=== PATIENT | male | born 1945 | race Caucasian/White ===

== ENCOUNTER 2017-01-28 10:50 | Outpatient (RCR) | payer SELFPAY ==
[~2017-01-28 10:50] MED LIST: AMIO20TA PO; ASPI1TAB6 PO; BAYE325T12 PO; CARV6.25 PO; CO Q200C PO; LASI20TA PO; LISI40TAB PO; MAGO400T PO; METF500T PO; PROT1TAB2 PO; SIMV40TA2 PO; VITA100037 PO
== END 2017-02-26 ==
LOC: M CR 10:50
PROVIDERS: ATTEND Internal Medicine Cardiovascular Disease
DX: Z51.89 Encounter for other specified aftercare (principal); I25.5 Ischemic cardiomyopathy

== ENCOUNTER → 2017-03-22 | Outpatient (CLI) | payer MEDICARE, BC, OTHER ==
--- NOTE | 2017-03-22 08:08 | PFTRPT ---
Site: [facility], [address] [place], [address] ID: [id number] Name: ELLYN LEY Doctor: MD Woodson Collins Tech: Sunil HERNÁNDEZ RRT Age: 72 Sex: Male Race: Height: 69.00 Inches Weight: 174.00 Lbs BSA: 1.95 Diagnosis: AMIODARONE USE test meet the ATS standards for acceptability and repeatability. Pre-Bronch Post-Bronch Pred Actual %Pred Actual %Chng SPIROMETRY FVC (L) 4.22 3.16 74 FEV1 (L) 3.09 2.60 84 FEV1/FVC (%) 73 82 112 FEF 25% (L/sec) 6.79 6.05 89 FEF 50% (L/sec) 3.95 3.79 95 FEF 75% (L/sec) 1.10 1.01 91 FEF 25-75% (L/sec) 2.33 2.81 120 FEF Max (L/sec) 8.03 6.21 77 FIVC (L) 3.12 FIF 50% (L/sec) 4.43 3.03 68 FIF Max (L/sec) 3.59 MVV (L/min) 123 65 52 LUNG VOLUMES SVC (L) 4.41 3.27 74 IC (L) 3.21 2.25 70 ERV (L) 1.20 1.02 84 TGV (L) 3.62 2.39 66 RV (Pleth) (L) 2.42 1.38 56 TLC (Pleth) (L) 6.83 4.64 67 RV/TLC (Pleth) (%) 36 30 82 DIFFUSION DLCOunc (ml/min/mmHg) 25.48 18.20 71 DL/VA (ml/min/mmHg/L) 3.73 3.76 100 VA (L) 6.83 4.84 70 AIRWAYS RESISTANCE Raw (cmH2O/L/s) 1.45 1.11 76 Gaw (L/s/cmH2O) 1.03 0.91 87 sRaw (cmH2O*s) 4.76 2.82 59 sGaw (1/cmH2O*s) 0.20 0.36 178
== END ==
LOC: M CARPUL 07:30
PROVIDERS: ATTEND Internal Medicine
DX: Z79.899 Other long term (current) drug therapy (principal)

== ENCOUNTER → 2017-07-08 | Outpatient (REF) | payer MEDICARE, OTHER ==
[~2017-07-08] MED LIST changes: -CO Q200C PO; +CO Q200C10 PO; -METF500T PO; +METF500T13 PO; -VITA100037 PO; +VITA100067 PO
== END ==
LOC: M LAB REF 13:22
PROVIDERS: ATTEND Internal Medicine
DX: R00.2 Palpitations (principal); E03.9 Hypothyroidism, unspecified

== ENCOUNTER 2017-09-13 13:46 | Outpatient (RCR) | payer SELFPAY | END 2017-09-28 | LOC: M CR 13:46 | PROVIDERS: ATTEND Internal Medicine Cardiovascular Disease | DX: Z51.89 Encounter for other specified aftercare (principal); I25.5 Ischemic cardiomyopathy ==

== ENCOUNTER 2017-12-01 14:55 | Outpatient (RCR) | payer SELFPAY | END 2017-12-29 | LOC: M CR 14:55 | DX: Z51.89 Encounter for other specified aftercare (principal); I25.5 Ischemic cardiomyopathy ==

== ENCOUNTER → 2018-02-04 | Outpatient (REF) | payer MEDICARE, OTHER ==
[2018-02-04 14:52] LABS: CONTROL LINE HPYORI INT CTR LINE PRESENT; H PYLORI QUALITATIVE IgG NEGATIVE (NEGATIVE)
[2018-02-08 00:06] LABS: ENDOMYSIAL ABY IgA Negative (Negative)
[2018-02-08 00:06] LABS: TISSUE TRANSGLUTAMINASE IgA <2 U/mL (0-3)
== END ==
LOC: M LAB REF 13:38
DX: R10.13 Epigastric pain (principal)
CPT/HCPCS: 86255

== ENCOUNTER → 2018-02-09 | Outpatient (REF) | payer MEDICARE, OTHER ==
[2018-02-09 12:49] LABS: AMYLASE 63 U/L (25-115)
[2018-02-09 12:49] LABS: LIPASE 146 U/L (73-393)
== END ==
LOC: M LAB REF 12:04
DX: R10.13 Epigastric pain (principal)
CPT/HCPCS: 82150

== ENCOUNTER 2018-03-09 14:55 | Outpatient (RCR) | payer SELFPAY | END 2018-03-28 | LOC: M CR 14:55 | DX: I25.5 Ischemic cardiomyopathy (principal) ==

== ENCOUNTER → 2018-06-27 | Outpatient (CLI) | payer MEDICARE, BC, OTHER | LOC: M CARPUL 08:46 | DX: Z51.81 Encounter for therapeutic drug level monitoring (principal); Z79.899 Other long term (current) drug therapy | CPT/HCPCS: 94010 ==

== ENCOUNTER → 2018-07-12 | Outpatient (REF) | payer MEDICARE, OTHER ==
[2018-07-13 11:11] LABS: LIPASE 197 U/L (73-393)
[2018-07-13 11:11] LABS: AMYLASE 77 U/L (25-115)
== END ==
LOC: M LAB REF 07-13 10:51
DX: R10.13 Epigastric pain (principal)
CPT/HCPCS: 82150

== ENCOUNTER → 2019-04-23 | Outpatient (REF) | payer MEDICARE, OTHER ==
[~2019-04-23] MED LIST changes: +AMIO200T10 PO; -AMIO20TA PO; -LASI20TA PO; +LASI20TA3 PO; +LISI40TA52 PO; -LISI40TAB PO
== END ==
LOC: M WUC 10:43
PROVIDERS: ATTEND Physician Assistant
DX: J00 Acute nasopharyngitis [common cold] (principal)

== ENCOUNTER → 2019-12-07 | Outpatient (REF) | payer MEDICARE, OTHER ==
[~2019-12-07] MED LIST changes: -SIMV40TA2 PO; +SIMV40TA20 PO
[2019-12-11 18:18] LABS: FOLATE 7.3 NG/ML
== END ==
LOC: M LAB REF 17:09
PROVIDERS: ATTEND Internal Medicine
DX: D69.6 Thrombocytopenia, unspecified (principal)

== ENCOUNTER → 2020-11-05 | Outpatient (CLI) | payer SELFPAY | LOC: M LABSMTC 11:11 | PROVIDERS: ATTEND Pediatrics | DX: Z11.59 Encounter for screening for other viral diseases (principal) ==

== ENCOUNTER → 2022-01-23 | Outpatient (CLI) | payer MEDICARE, BC, OTHER | LOC: M RAD 12:05 | PROVIDERS: ATTEND Internal Medicine | DX: M79.605 Pain in left leg (principal) ==

== ENCOUNTER → 2022-06-10 | Outpatient (REF) | payer MEDICARE, BC, OTHER | LOC: M SFHCDERM 14:00 | PROVIDERS: ATTEND Physician Assistant | DX: C44.212 Basal cell carcinoma of skin of right ear and external auricular canal (principal) ==

== ENCOUNTER → 2024-10-04 | Outpatient (CLI) | payer MEDICARE, BC, OTHER | LOC: M WUC 09:54 | PROVIDERS: ATTEND Internal Medicine | DX: M54.50 Low back pain, unspecified (principal); M79.604 Pain in right leg; M85.88 Other specified disorders of bone density and structure, other site ==

== ENCOUNTER → 2025-02-14 | Outpatient (REF) | payer MEDICARE, BC, OTHER ==
[~2025-02-14] MED LIST changes: -BAYE325T12 PO; +BAYE325T2 PO
== END ==
LOC: M LAB REF 17:16
PROVIDERS: ATTEND Nurse Practitioner Family
DX: R10.9 Unspecified abdominal pain (principal)

== ENCOUNTER → 2025-07-10 | Outpatient (REF) | payer MEDICARE, OTHER ==
[2025-07-10 16:57] LABS: VITAMIN B12 LEVEL 571.0 PG/ML (211-911)
== END ==
LOC: M LAB REF 15:04
PROVIDERS: ATTEND Internal Medicine
DX: R19.7 Diarrhea, unspecified (principal); J05.10 Acute epiglottitis without obstruction; G60.9 Hereditary and idiopathic neuropathy, unspecified

== ENCOUNTER → 2025-07-23 | Outpatient (CLI) | payer MEDICARE, BC, OTHER | LOC: M PLAIMG 14:28 | PROVIDERS: ATTEND Internal Medicine | DX: R10.9 Unspecified abdominal pain (principal) ==

== ENCOUNTER 2025-08-24 06:09 | Emergency (ER) | payer MEDICARE, BC, OTHER ==
[~2025-08-24] VITALS: Ht 175.3 cm; Wt 64.5 kg
[2025-08-24 06:40] LABS: BASO # 0.0 10^3/uL (0.0-0.2); BASO % 0.1 % (0.0-1.0); EOS # 0.1 10^3/uL (0.0-0.5); EOS % 0.9 % (0.0-3.0); LYMPH # 0.5 10^3/uL (1.5-5.0); LYMPH % 5.6 % (24.0-44.0); MONO # 0.3 10^3/uL (0.0-0.8); MONO % 3.4 % (2.0-8.0); NEUTROPHILS # 7.7 10^3/uL (1.5-8.5); NEUTROPHILS % 89.6 % (36.0-66.0); PLATELET COUNT, AUTOMATED 104 10^3/uL (150-450)
[2025-08-24 07:13] LABS: ALT/SGPT 172.0 U/L (7.0-40); AST/SGOT 253.0 U/L (<34); CALCIUM LEVEL 8.5 MG/DL (8.3-10.6); CARBON DIOXIDE LEVEL 26.0 MMOL/L (20-31); CHLORIDE LEVEL 104.0 MMOL/L (98-107); CREATININE FOR GFR 1.42 MG/DL (0.70-1.30); GLOMERULAR FILTRATION RATE 50.3 (>42); POTASSIUM SERUM 4.9 MMOL/L (3.5-5.1); SODIUM LEVEL 138.0 MMOL/L (136-145)
[2025-08-24] MEDS ORDERED: ISOVUE-370 76% 100 ML VIAL As Ordered ONE (07:48)
[2025-08-24] MEDS: ONDANSETRON 4MG 2ML VIAL IV ONE ×2 (07:52→12:46)
[2025-08-24] MEDS: MORPHINE 4 MG/ML 1 ML VIAL IV ONE (07:53)
[2025-08-24] MEDS: NS 500 ML IV ONE (08:23)
[2025-08-24] MEDS: NS (Normal Saline) 0.9% 1,000 ML IV SCH (11:14)
[2025-08-24] MEDS: MORPHINE 2 MG/ML 1 ML VIAL IV ONE (12:46)
[2025-08-24 12:54] VITALS: BP 131/61; TEMP 98.6; O2SAT 94
== END 2025-08-24 12:56 | disposition short-term general hospital (02) ==
LOC: M ED 06:09
DX: R74.01 Elevation of levels of liver transaminase levels (principal); K83.1 Obstruction of bile duct; E11.9 Type 2 diabetes mellitus without complications; I25.10 Atherosclerotic heart disease of native coronary artery without angina pectoris; I25.2 Old myocardial infarction; I10 Essential (primary) hypertension; K21.9 Gastro-esophageal reflux disease without esophagitis; Z95.5 Presence of coronary angioplasty implant and graft; Z95.1 Presence of aortocoronary bypass graft; Z79.82 Long term (current) use of aspirin; Z79.84 Long term (current) use of oral hypoglycemic drugs; Z79.899 Other long term (current) drug therapy
CPT/HCPCS: 74177; 80048; 80076; 83690; 85025; 87486; 87581; 87633; 87798; 93005; 96361; 96374; 96375; 96376; 99285; J2405; Q9967

== ENCOUNTER → 2025-10-16 | Outpatient (CLI) | payer MEDICARE, BC, OTHER | LOC: M PLAIMG 14:18 | PROVIDERS: ATTEND Internal Medicine Hematology & Oncology | DX: C22.1 Intrahepatic bile duct carcinoma (principal) ==

== ENCOUNTER → 2025-11-15 | Outpatient (REF) | payer MEDICARE, BC, OTHER ==
[~2025-11-15] MED LIST changes: +AMIO200T55; +ASPI-428 PO; +CORE12.5 PO; +EZET10TA57; +FARX1TAB5; +LISI20TA33; +MAGN500C2 PO; +SPIR-10
[2025-11-15 08:56] LABS: BASO # 0.0 10^3/uL (0.0-0.2); BASO % 0.8 % (0.0-1.0); EOS # 0.2 10^3/uL (0.0-0.5); EOS % 4.3 % (0.0-3.0); LYMPH # 1.1 10^3/uL (1.5-5.0); LYMPH % 31.0 % (24.0-44.0); MONO # 0.4 10^3/uL (0.0-0.8); MONO % 9.8 % (2.0-8.0); NEUTROPHILS # 2.0 10^3/uL (1.5-8.5); NEUTROPHILS % 53.8 % (36.0-66.0)
[2025-11-15 08:57] LABS: PLATELET COUNT, AUTOMATED 55 10^3/uL (150-450)
[2025-11-15 08:59] LABS: ALT/SGPT 28.0 U/L (7.0-40); AST/SGOT 27.0 U/L (<34); CALCIUM LEVEL 8.1 MG/DL (8.3-10.6); CARBON DIOXIDE LEVEL 30.0 MMOL/L (20-31); CHLORIDE LEVEL 104.0 MMOL/L (98-107); CREATININE FOR GFR 1.22 MG/DL (0.70-1.30); GLOMERULAR FILTRATION RATE 60.3 (>42); POTASSIUM SERUM 4.7 MMOL/L (3.5-5.1); SODIUM LEVEL 142.0 MMOL/L (136-145)
== END ==
LOC: M LAB REF 08:02
PROVIDERS: ATTEND Internal Medicine Hematology & Oncology
DX: C22.1 Intrahepatic bile duct carcinoma (principal)